=== PATIENT | male | born 1985 | race Hispanic/Latino ===

== ENCOUNTER 2023-09-20 20:00 | Emergency (ER) | payer MEDICARE, SELFPAY ==
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
[2023-09-20 20:08] VITALS: BP 126/93; PULSE 79; RESP 18; TEMP 36.9; O2SAT 99
--- NOTE | 2023-09-20 21:36 | ED.GENADULT ---
HPI - General Adult General Chief complaint: Unspecified Stated complaint: nose complaint? Time Seen by Provider: 09/20/23 20:27 History of Present Illness HPI narrative: 37-year-old [place]-speaking male presents to emergency department for URI symptoms for 3 weeks. Patient is reporting rhinorrhea, nasal congestion, intermittent cough, subjective fevers. He denies ear pain or sore throat, nausea or vomiting. States he had similar symptoms a few years ago was told he had allergies. He has not taken anything for symptoms. Review of Systems Review of Systems: CONSTITUTIONAL: see HPI EYES: Denies visual changes, redness, or discharge. ENT: See HPI CARDIOVASCULAR: Denies chest pain, palpitations, or edema. RESPIRATORY: Denies cough or dyspnea. GASTROINTESTINAL: Denies abdominal pain, nausea, vomiting, or diarrhea. GENITOURINARY: Denies dysuria or hematuria. SKIN: Denies rash or itching. MUSCULOSKELETAL: Denies back pain, joint pain, or myalgia. NEUROLOGIC: Denies headache, numbness, or weakness. PSYCHIATRIC: Denies anxiety or depression. Exam Narrative: GENERAL: Well-appearing, well-nourished, and in no acute distress. HEAD: Normocephalic, atraumatic. EYES: PERRLA and EOMI. ENT: Nares clear, no rhinorrhea or epistaxis. nasal mucosa is congested. Mucous membranes moist. bilateral TMs are franz nonbulging with normal canals. Posterior pharynx with mild erythema. No tonsillar hypertrophy or exudates. Uvula is midline. No trismus. NECK: Supple. No nuchal rigidity CHEST: Clear to auscultation. No respiratory distress. HEART: Regular rate and rhythm. No murmur heard. Normal peripheral pulses. ABDOMEN: Soft, nontender, nondistended, normal active bowel sounds. EXTREMITIES: Normal range of motion. No edema. SKIN: Warm, dry, no rash. NEURO: No focal deficits. Alert and oriented x3 Course Vital Signs Vital signs: Vital Signs Temperature 98.4 F 09/20/23 20:08 Pulse Rate 79 09/20/23 20:08 Respiratory Rate 18 09/20/23 20:08 Blood Pressure 126/93 H 09/20/23 20:08 Pulse Oximetry 99 09/20/23 20:08 Oxygen Delivery Room Air 09/20/23 20:08 Temperature 98.4 F 09/20/23 20:08 Pulse Rate 79 09/20/23 20:08 Respiratory Rate 18 09/20/23 20:08 Blood Pressure 126/93 H 09/20/23 20:08 Pulse Oximetry 99 09/20/23 20:08 Oxygen Delivery Room Air 09/20/23 20:08 Medical Decision Making MDM Narrative Medical decision making narrative: 37-year-old male presents to the emergency department for URI symptoms for 3 weeks. Triage vital stable. He is well-appearing, nontoxic on exam. See above. strep is negative. COVID, flu, RSV are negative. Chest x-ray shows Mild lingular discoid atelectasis. workup discussed with the patient. Given duration of symptoms, will start Augmentin for sinusitis and provide PCP follow-up. Advised him to take daily Zyrtec or Claritin is or may be an allergy component to his symptoms. Strict ED return precautions discussed. He is agreeable to plan verbalized understanding. Discharged in stable condition. Vital Signs Vital Signs: Vital Signs Temperature 98.4 F 09/20/23 20:08 Pulse Rate 79 09/20/23 20:08 Respiratory Rate 18 09/20/23 20:08 Blood Pressure 126/93 H 09/20/23 20:08 Pulse Oximetry 99 09/20/23 20:08 Oxygen Delivery Room Air 09/20/23 20:08 Temperature 98.4 F 09/20/23 20:08 Pulse Rate 79 09/20/23 20:08 Respiratory Rate 18 09/20/23 20:08 Blood Pressure 126/93 H 09/20/23 20:08 Pulse Oximetry 99 09/20/23 20:08 Oxygen Delivery Room Air 09/20/23 20:08 Lab Data Labs: Lab Results 09/20/23 Range/Units 21:35 Influenza A (RT-PCR) Pending Influenza B (RT-PCR) Pending RSV (RT-PCR) Pending SARS-CoV-2 RNA (RT-PCR) Pending Group A Strep (PCR) Not detected (Negative) Discharge Plan Discharge Clinical Impression: Acute rhinosinusitis Patient Disposition: Home, Self-Care
[2023-09-20 22:04] LABS: Strep Group A RT-PCR NOT DETECTED (Negative)
[2023-09-20 22:16] LABS: Influenza A QL RT-PCR Negative (Negative); Influenza B QL RT-PCR Negative (Negative); RSV RNA, RT-PCR Negative (Negative); SARS-CoV-2 RNA PCR Negative (Negative)
[2023-09-20] MEDS: AMOXICILLIN/CLAVULANATE K 875-125 MG TAB 1 TABLET PO (22:27)
== END 2023-09-20 22:35 | disposition home or self-care (01) ==
PROVIDERS: Emergency Provider Physician Assistant
DX: J32.9 Chronic sinusitis, unspecified (principal); Z20.822 Contact with and (suspected) exposure to COVID-19
CPT/HCPCS: 71046; 87637; 87651; 99283; A9270